=== PATIENT | male | born 1965 | race Caucasian/White ===

== ENCOUNTER → 2019-06-08 10:10 | Outpatient (CLI) | payer OTHER, SELFPAY ==
[2019-06-08 11:04] LABS: Add Manual Diff / Slide Review NO; Basophils Absolute Auto 0 /uL (0-100); Basophils Percent Auto 0.5 % (0-2); Eosinophils Absolute Auto 100 /uL (0-450); Eosinophils Percent Auto 1.2 % (2-4); Hematocrit 43.4 % (41-53); Hemoglobin 14.7 g/dL (13.5-17.5); Lymphocytes Absolute Auto 1500 /uL (1100-4500); Lymphocytes Percent Auto 28.7 % (25-40); Mean Corpuscular HGB Conc 33.9 % (30-36); Mean Corpuscular Hemoglobin 30.3 PG (26-34); Mean Corpuscular Volume 89.4 fL (80-100); Monocytes Absolute Auto 600 /uL (0-900); Monocytes Percent Auto 10.8 % (3-14); Neutrophils Absolute Auto 3000 /uL (1500-7000); Neutrophils Percent Auto 58.8 % (50-75); Platelet Count 268 X10^3/uL (150-400); Red Blood Cell Count 4.85 X10^6/uL (4.5-5.9); Red Cell Distribution Width 13.4 % (11.6-14.8); White Blood Cell Count 5.1 X10^3/uL (4.5-11.0)
[2019-06-08 11:22] LABS: Alanine Aminotransferase 25 IU/L (<50); Albumin 4.5 g/dL (3.5-5.0); Albumin Globulin Ratio 1.5 (1.0-2.8); Alkaline Phosphatase 142 U/L (38-126); Aspartate Aminotransferase 26 IU/L (17-59); BUN Creatinine Ratio 21.3 (6-22); Bilirubin Total 0.5 mg/dL (0.2-1.3); Blood Urea Nitrogen 17 mg/dL (9-20); Calcium 9.9 mg/dL (8.4-10.2); Carbon Dioxide 28 mmol/L (22-32); Chloride 102 mmol/L (98-107); Cholesterol 229 mg/dL (140-199); Estimated Glomerular Filt Rate > 60.0 mL/min (>60); Globulin 3.1 g/dL (1.7-4.1); Glucose 88 mg/dL (70-100); HDL Cholesterol 33 mg/dL (40-60); HEMOLYSIS < 15 (0-50); LDL Cholesterol Calculated 178 mg/dL (<100); Potassium 4.4 mmol/L (3.4-5.1); Sodium 141 mmol/L (137-145); Total Protein 7.6 g/dL (6.3-8.2); Triglycerides 92 mg/dL (35-150)
[2019-06-08 11:51] LABS: Free T3, Triiodothyronine Free 4.54 pg/mL (2.77-5.27); Free T4, Direct Thyroxine 1.19 ng/dL (0.78-2.19)
[2019-06-08 12:05] LABS: Thyroid Stimulating Hormone 2.29 uIU/mL (0.47-4.68)
== END ==
PROVIDERS: PCP Nurse Practitioner; Visit Provider Nurse Practitioner
DX: Z00.00 Encounter for general adult medical examination without abnormal findings (principal); Z12.5 Encounter for screening for malignant neoplasm of prostate
CPT/HCPCS: 36415; 80053; 80061; 84439; 84443; 84481; 85025; G0103

== ENCOUNTER → 2019-06-14 16:55 | Outpatient (CLI) | payer OTHER, SELFPAY ==
--- NOTE | 2019-06-14 16:58 | DI.MRI.S_ITS ---
PROCEDURE: MR KNEE LT WO CON INDICATIONS: Left knee pain TECHNIQUE: Noncontrast sagittal PD fast spin echo and T2 fast spin echo with fat saturation, sagittal 3-D FLASH with fat saturation; coronal T1 spin echo and PD fast spin echo with fat saturation, and axial PD fast spin echo with fat saturation through the knee. COMPARISON: None. FINDINGS: Image quality: Excellent. Menisci: Intrasubstance signal change present within the body of the medial meniscus although unclear if this extends to an articular surface. This could represent prominent myxoid degeneration Lateral meniscus intact. Cruciate ligaments: Anterior cruciate ligament appears intact. Posterior cruciate ligament appears intact. Medial structures: The medial collateral ligament appears intact. Semimembranosus tendon appears intact. Visualized portions of the pes anserinus tendons appear normal. No abnormal bursal fluid. Lateral structures: The lateral collateral ligament demonstrates thickening and intrasubstance signal change in keeping with low grade sprain, statistically chronic, although technically age indeterminate. Biceps femoris tendon appears intact. Popliteus tendon grossly unremarkable. Iliotibial band appears intact. Anterior structures: Quadriceps tendon intact. Medial and lateral patellofemoral ligaments intact. There is mild patellar tendinopathy. Prepatellar and superficial infrapatellar subcutaneous edema/fluid. Bones and cartilage: No focal marrow contusion or discrete low signal fracture line. Within the medial compartment, no focal cartilage defect Within the lateral compartment, intrasubstance signal changes involving the weightbearing tibial cartilage. No focal cartilage defect Within the patellofemoral compartment, there is full-thickness articular cartilage loss involving the median patellar ridge and lateral patellar facet. There is partial-thickness loss of the lateral femoral trochlear cartilage. Prominent subchondral marrow edema and cystic changes present in the patella. Joint space: Mild joint effusion. Trace fluid between the semimembranosus and medial gastrocnemius tendons without definite formed cyst. No specific evidence of intra-articular loose body. 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 Mild joint effusion Dictated by: Pilo Parada M.D. on 06/15/2019 at 9:37 Approved by: Pilo Parada M.D. on 06/15/2019 at 12:37
== END ==
PROVIDERS: PCP Nurse Practitioner; Visit Provider Nurse Practitioner
DX: M25.562 Pain in left knee (principal); M17.11 Unilateral primary osteoarthritis, right knee; M25.462 Effusion, left knee
CPT/HCPCS: 73721

== ENCOUNTER → 2019-09-01 15:55 | Outpatient (CLI) | payer OTHER, SELFPAY ==
--- NOTE | 2019-09-01 15:56 | DI.MRI.S_ITS ---
PROCEDURE: MR KNEE RT WO CON INDICATIONS: right knee pain with swelling TECHNIQUE: Noncontrast sagittal PD fast spin echo and T2 fast spin echo with fat saturation, sagittal 3-D FLASH with fat saturation; coronal T1 spin echo and PD fast spin echo with fat saturation, and axial PD fast spin echo with fat saturation through the knee. COMPARISON: [facility], MR, KNEE WITH CONTRAST, 03/27/2012, 10:04. [facility], MR, KNEE WITHOUT CONTRAST, 03/11/2012, 15:06. FINDINGS: Image quality: Diagnostic. Bones and joint: There is no acute fracture or dislocation. No suspicious osseous lesions are evident. There is a moderate-sized knee joint effusion without significant fluid extending into a Mejia's cyst. Multifocal small to moderate-sized defects of the hyaline articular cartilage are noted throughout all 3 compartments of the knee that are most pronounced within the patellofemoral compartment with underlying degenerative/reactive marrow edema. Cruciate ligaments: The anterior and posterior cruciate ligaments are intact. Slight increased signal of the anterior cruciate ligament may be present. Menisci: Amorphous increased signal is evident along the periphery of the medial and lateral menisci. There may be a horizontal tear at the junction of the body and posterior horn of the medial meniscus no articular surface extension is identified. Medial structures: The medial collateral ligament is intact. The semimembranosus tendon insertion is intact. The imaged portions of the pes anserinus tendons are unremarkable. No significant fluid is contained within the pes anserinus bursa. There may be mild scarring involving the medial patellofemoral ligament at the patellar attachment. Lateral structures: The popliteal tendon is mildly thickened and edematous. The lateral collateral ligament proper (fibular collateral ligament) and the proximal tibiofibular ligaments are intact. The distal aspect of the biceps femoris tendon and the iliotibial band are intact. There is a prominent tubular structure identified along the anterior aspect of the proximal fibula that likely represents a thickened tendon involving the origin of the extensor digitorum longus tendons. This is not completely evaluated on this examination. This cystic structure is new since the prior study. Anterior structures: The quadriceps and patellar tendons are intact. There is mild edema in the infrapatellar fat pad. Other: There continues to be a prominent vascular structures identified within the popliteal fossa, which are significantly less apparent on the current examination which may be related to interval treatment and clinical correlation is recommended. IMPRESSION: 1. Marked thickening involving a probable tendinous structure within the anterior compartment of the upper right lower leg adjacent to the anterior fibula probably represents an abnormal proximal extensor digitorum longus tendon with an associated ganglion cyst. Clinical correlation is recommended. The need for better evaluation of this region utilizing an MRI of the right lower leg may be determined clinically. 2. Mild proximal popliteal tendinopathy. 3. 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 4. Possible prior injury to the medial patellofemoral ligament. 4. Probable horizontal tearing along the periphery of the medial meniscus. No articular surface involvement. 6. Moderate-sized knee joint effusion. 7. Vascular anomaly within the popliteal fossa has either resolved or significantly smaller. Dictated by: Buzz Johnston M.D. on 09/01/2019 at 16:43 Approved by: Buzz Johnston M.D. on 09/01/2019 at 16:51
== END ==
PROVIDERS: PCP Student in an Organized Health Care Education/Training Program; Referring Provider Nurse Practitioner Family; Visit Provider Nurse Practitioner Family
DX: M25.561 Pain in right knee (principal); M25.461 Effusion, right knee; M94.261 Chondromalacia, right knee; M67.961 Unspecified disorder of synovium and tendon, right lower leg
CPT/HCPCS: 73721

== ENCOUNTER 2019-12-27 10:55 | Emergency (ER) | payer OTHER, SELFPAY ==
[2019-12-27] VITALS (9 sets, daily range): BP systolic 133–157; BP diastolic 79–92; PULSE 79–94; RESP 12–20; TEMP 36.7; O2SAT 94–100
--- NOTE | 2019-12-27 11:16 | ED.GENADULT ---
HPI - General Adult General Chief complaint: Neuro Symptoms/Deficit Stated complaint: FATIGUE HEADACHE TRY TO RULE OUT TA Time Seen by Provider: 12/27/19 11:15 Source: patient and family () Mode of arrival: Wheelchair Limitations: no limitations History of Present Illness HPI narrative: Patient is a 54-year-old male here for evaluation of left sided upper and lower extremity weakness and coordination issues and also headache. His presenting symptoms today started approximately 2 weeks ago. Patient stated that several weeks ago he started having right knee pain. Saw orthopedics who performed a right knee arthrocentesis. Sometime after this he started having left lower extremity weakness and pain. Initially the thought was that he was compensating for his right knee issues that he was having. Approximately 2 weeks ago he started having some weakness and coordination issues with his left upper extremity. Since that time he thinks that his left-sided symptoms have been worsening. He also states that he is having a headache. Has been having the headache for the past 3 weeks although it has been more persistent recently. No problem with loss of bowel or bladder. He is still able to obtain an erection. He is able to ambulate somewhat with a cane however is having more problems doing this over the past day given the weakness his left lower extremity. He states that 3 weeks ago he could climb a flight of stairs without much problems. Two weeks ago states that he had quite a bit of problems climbing stairs and now states that he would not be able to climb a flight of stairs. Difficult time describing whether not this is a weakness or coordination issue. He feels like it is potentially both. Related Data Home Medications Medication Instructions Recorded Confirmed No Known Home Medications 12/27/19 12/27/19 Allergies Allergy/AdvReac Type Severity Reaction Status Date / Time No Known Drug Allergies Allergy Unverified 09/09/19 12:55 Review of Systems Constitutional Constitutional: Denies fever(s), Reports headache(s), Denies poor appetite and Reports weakness (Left arm and left leg) ENT Ears, Nose, Mouth, and Throat: Denies vertigo, Denies dizziness, Reports headache(s), Reports neck pain, Reports disequilibrium and Denies sinus pain Cardiovascular Cardiovascular: Denies chest pain, Denies rapid heart rate, Denies lightheadedness and Denies dyspnea Respiratory Respiratory: Denies cough and Denies dyspnea Gastrointestinal Gastrointestinal: Denies abdominal pain, Denies change in bowel habits, Denies diarrhea and Denies nausea Genitourinary Genitourinary: Denies change in libido, Denies dysuria, Denies erectile dysfunction, Denies dysuria, Denies testicular pain, Denies urinary hesitancy and Denies urinary incontinence Genitourinary: Denies change in libido, Denies dysuria, Denies dysuria, Denies urinary incontinence and Denies urinary hesitancy Musculoskeletal Musculoskeletal: Reports abnormal gait, Denies back pain, Reports muscle weakness (Left arm and left lower extremity), Reports neck pain, Denies numbness and Denies tingling Integumentary/Breasts Skin/Breast: Denies lesions and Denies rash Neurologic Neurologic: Denies abnormal speech, Reports abnormal gait, Denies behavioral changes, Denies confusion, Denies vertigo, Denies dizziness, Reports headache(s), Denies numbness, Denies restless legs, Denies seizure-like activity, Denies tingling, Reports disequilibrium and Reports weakness (Left arm and left leg) Psychiatric Psychiatric: Denies behavioral changes, Denies change in libido, Denies confusion and Denies depression Endocrine Endocrine: Denies change in libido Hematologic/Lymphatic Hematologic/Lymphatic: Denies easy bleeding and Denies easy bruising Patient History Medical History Right medial knee pain (Acute) Smoker (Inactive) Surgical History (Updated 09/19/19 @ 19:48 by Taya Terry) Anesthesia (Resolved) History of ankle surgery (Resolved ~1978) Family History (Updated 09/19/19 @ 19:48 by Taya Terry) Father History of heart disease Social History Smoking Status: Former smoker Smoking Status: Former smoker Exam Initial Vital Signs Initial Vital Signs: Vital Signs Temperature 98.1 F 12/27/19 11:00 Pulse Rate 86 12/27/19 11:00 Respiratory Rate 14 12/27/19 11:00 Blood Pressure 134/90 12/27/19 11:00 Pulse Oximetry 100 12/27/19 11:00 Const General: cooperative, well developed and well groomed Limitations: mental status not altered HENMT Head: normal to inspection and normocephalic Eyes Pupils: PERRL Resp Effort & Inspection: normal respiratory effort Auscultation: clear to auscultation bilaterally Cardio Rate: regular rate Rhythm: regular rhythm Pulses: dorsalis pedis present on the right GI Inspection: non-distended Palpation: soft Back/Spine/Pelvis Cervical Spine: cervical muscular tenderness (Left paraspinal), No cervical spasm and No step off deformity Skin Lesions: no lesions Rashes: no rashes Neuro General: patient alert, patient awake and patient oriented x3 Cranial Nerves: CN's II-XI intact bilaterally Cognition: normal cognition Speech: speech normal Motor: No pronator drift Sensory Exam: no sensory deficits noted DTR's: Rt Biceps: 2+, Lt Biceps: 3+, Rt Ankle: 1+ and Lt Ankle: 1+ Other: Neurologic exam in the right upper and right lower extremity are unremarkable. His left lower extremity has significant muscle wasting of the thigh and hamstring compared to the right. Patient is able to lift his leg somewhat off the bed. Is able to flex and extend at his ankle and and this is same as the right side however does have weakness with flexion extension of the knee and at the hip. His left upper extremity his elbow is unremarkable and equal strength compared to the right. Does have quite a bit of muscle weakness of the shoulder especially with abduction and forward flexion. Also has weakness with flexion of the right wrist. Extrem General: normal to inspection, capillary refill normal and edema Other: Does have tenderness to palpation left snuffbox tenderness. Psych Appearance: grossly normal and well kempt Affect: normal affect Scores GCS Tiffany coma scale eye opening: Spontaneous Tiffany coma scale verbal response: Orientated [place] coma scale motor response: Obey commands [place] coma scale total score: 15 Course Orders Ordered: ED Orders 12/27/19 11:06 EKG-12 Lead Stat 12/27/19 11:10 Complete Blood Count AUTO DIFF Stat Comprehensive Metabolic Panel Stat Lipase Stat Partial Thromboplastin Time Stat Prothrombin Time INR Stat Thyroid Stimulating Hormone Stat 12/27/19 11:45 CT head/brain wo con Stat 12/27/19 12:00 XR hand LT min 3V Stat 12/27/19 12:13 MR cervical spine wo/w con Stat MR head/brain wo/w con Stat Discontinued Medications Acetaminophen (Tylenol) 975 mg PO NOW ONE Stop: 12/27/19 15:17 Last Admin: 12/27/19 15:55 Dose: 975 mg Documented by: GODFREY Vital Signs Vital signs: Vital Signs - 8 hr 12/27/19 11:00 12/27/19 11:30 12/27/19 12:00 Temperature 98.1 F Pulse Rate 86 80 79 Respiratory Rate 14 18 12 Blood Pressure 134/90 Blood Pressure [Left Arm] 139/84 134/81 Pulse Oximetry 100 96 97 12/27/19 13:14 12/27/19 14:09 12/27/19 14:30 Temperature Pulse Rate 81 87 94 H Respiratory Rate 18 16 20 Blood Pressure Blood Pressure [Left Arm] 138/84 140/79 157/92 H Pulse Oximetry 98 98 94 12/27/19 15:00 12/27/19 15:57 12/27/19 17:28 Temperature Pulse Rate 85 84 80 Respiratory Rate 17 16 16 Blood Pressure Blood Pressure [Left Arm] 147/86 H 143/83 H 133/80 Pulse Oximetry 94 99 99 Medical Decision Making Lab Data Lab results reviewed: Yes I reviewed the patient's lab results. Result diagrams: 12/27/19 11:10 12/27/19 11:10 Labs: Lab Results 12/27/19 12/27/19 12/27/19 Range/Units 11:10 11:10 11:10 WBC 6.3 (4.5-11.0) X10^3/uL RBC 5.48 (4.5-5.9) X10^6/uL Hgb 14.4 (13.5-17.5) g/dL Hct 43.9 (41-53) % MCV 80.0 (80-100) fL MCH 26.3 (26-34) PG MCHC 32.9 (30-36) % RDW 17.2 H (11.6-14.8) % Plt Count 269 (150-400) X10^3/uL Neut % (Auto) 69.6 (50-75) % Lymph % (Auto) 18.1 L (25-40) % Elmore % (Auto) 10.6 (3-14) % Eos % (Auto) 0.7 L (2-4) % Baso % (Auto) 1.0 (0-2) % Neut # (Auto) 4400 (4893-3753) /uL Lymph # (Auto) 1200 (1594-7300) /uL Elmore # (Auto) 700 (0-900) /uL Eos # (Auto) 0 (0-450) /uL Baso # (Auto) 100 (0-100) /uL PT 12.0 (10.1-12.7) SECONDS INR 1.0 (0.9-1.3) APTT 34 (26.4-36.2) SECONDS Sodium 136 L (137-145) mmol/L Potassium 4.7 (3.4-5.1) mmol/L Chloride 105 (98-107) mmol/L Carbon Dioxide 24 (22-32) mmol/L BUN 25 H (9-20) mg/dL Creatinine 0.80 (0.66-1.25) mg/dL Estimated GFR > 60.0 (>60) mL/min BUN/Creatinine Ratio 31.3 H (6-22) Glucose 101 H (70-100) mg/dL Calcium 10.6 H (8.4-10.2) mg/dL Total Bilirubin 0.7 (0.2-1.3) mg/dL AST 30 (17-59) IU/L ALT 20 (<50) IU/L Alkaline Phosphatase 125 (38-126) U/L Total Protein 8.0 (6.3-8.2) g/dL Albumin 4.3 (3.5-5.0) g/dL Globulin 3.7 (1.7-4.1) g/dL Albumin/Globulin Ratio 1.2 (1.0-2.8) Lipase 40 (23-300) U/L TSH (0.47-4.68) uIU/mL /03/09 Range/Units 11:10 WBC (4.5-11.0) X10^3/uL RBC (4.5-5.9) X10^6/uL Hgb (13.5-17.5) g/dL Hct (41-53) % MCV (80-100) fL MCH (26-34) PG MCHC (30-36) % RDW (11.6-14.8) % Plt Count (150-400) X10^3/uL Neut % (Auto) (50-75) % Lymph % (Auto) (25-40) % Elmore % (Auto) (3-14) % Eos % (Auto) (2-4) % Baso % (Auto) (0-2) % Neut # (Auto) (1097-6372) /uL Lymph # (Auto) (7399-7040) /uL Elmore # (Auto) (0-900) /uL Eos # (Auto) (0-450) /uL Baso # (Auto) (0-100) /uL PT (10.1-12.7) SECONDS INR (0.9-1.3) APTT (26.4-36.2) SECONDS Sodium (137-145) mmol/L Potassium (3.4-5.1) mmol/L Chloride (98-107) mmol/L Carbon Dioxide (22-32) mmol/L BUN (9-20) mg/dL Creatinine (0.66-1.25) mg/dL Estimated GFR (>60) mL/min BUN/Creatinine Ratio (6-22) Glucose (70-100) mg/dL Calcium (8.4-10.2) mg/dL Total Bilirubin (0.2-1.3) mg/dL AST (17-59) IU/L ALT (<50) IU/L Alkaline Phosphatase (38-126) U/L Total Protein (6.3-8.2) g/dL Albumin (3.5-5.0) g/dL Globulin (1.7-4.1) g/dL Albumin/Globulin Ratio (1.0-2.8) Lipase (23-300) U/L TSH 2.32 (0.47-4.68) uIU/mL Imaging Data CT scan - head: Radiologist's Impression: [place] [address] CT Scan Report Signed Patient: Kerline Green TMR#: [id number] : 1965Acct:[id number] Age/Sex: 54 / MDate of Service: 12/27/19 Loc: ED Accession Number: [id number] Procedure: CT head/brain wo con Ordering Provider: Marc Wilson D.O. PROCEDURE: CT HEAD/BRAIN WO CON INDICATIONS: Right-sided weakness TECHNIQUE: Noncontrast 4.5 mm thick angled axial sections acquired from the foramen magnum to the vertex, with coronal and sagittal reformats. For radiation dose reduction, the following was used: automated exposure control, adjustment of mA and/or kV according to patient size. COMPARISON: None. FINDINGS: Image quality: Diagnostic. CSF spaces: Basal cisterns are patent. No extra-axial fluid collections. Ventricles are normal in size and shape. Brain: There appear to be 5 hyperdense parenchymal lesions with prominent surrounding edema within the deep white matter of the supratentorial brain. The largest is located within the inferior aspect of the left frontal region and measures up to approximately 1.7 cm. There also is a small lesion identified near the same level involving the inferior right frontal region that measures approximately 5 mm in diameter (image 15, series 2). Similar sized lesions are evident involving the superior aspect of the left frontal lobe and the superior margin of the right frontal lobe. Another dominant mass is evident involving the superior margin of the right frontal lobe that measures up to approximately 1.2 cm in diameter (image 26, series 2). Local mass effect is present related to these lesions. However, no midline shift is appreciated. No parenchymal hemorrhage is appreciated. Skull and face: There appears to be a erosive lesion involving the left C1 vertebra (image 1, series 3). Otherwise, the imaged osseous structures are unremarkable. Sinuses: Visualized sinuses and mastoids are clear. IMPRESSION: 1. Multiple lesions within the brain are highly suggestive of metastatic disease. An atypical infection could potentially result in this appearance. MRI with contrast is recommended for further evaluation. 2. Erosive C1 bone lesion is suggestive of metastatic disease. 3. No definite acute intracranial hemorrhage. Note: Findings were discussed with Dr. Wilson at 1207 hours (PST) on 12/27/19. Dictated by: Buzz Johnston M.D. on 12/27/2019 at 11:00 Approved by: Buzz Johnston M.D. on 12/27/2019 at 11:10 Extremity x-ray #1: Radiologist's Impression: [address] [address] XRay Report Signed Patient: Kerline Green TMR#: [id number] : 1965Acct:[id number] Age/Sex: 54 / MDate of Service: 12/27/19 Loc: ED Accession Number: [id number] Procedure: XR hand LT min 3V Ordering Provider: Marc Wilson D.O. PROCEDURE: XR HAND LT MIN 3V INDICATIONS: left thumb pain over snuff box TECHNIQUE: 3 views of the hand(s) acquired. COMPARISON: None. FINDINGS: Bones: There appears to be a lucent lesion involving the trapezium versus postoperative changes related to partial resection. No acute fracture or dislocation is identified. The remainder of the image osseous structures are otherwise unremarkable. Soft tissues: No suspicious soft tissue calcifications. An IV in the catheter is identified within the subcutaneous tissues on the dorsal aspect of the hand. IMPRESSION: 1. No acute fractures. 2. Lucent lesion versus previous partial resection of the trapezium. If the patient has not had prior surgery at this location, MRI is recommended with contrast to exclude a potential neoplastic or infectious process. Dictated by: Buzz Johnston M.D. on 12/27/2019 at 11:23 Approved by: Buzz Johnston M.D. on 12/27/2019 at 11:25 MRI C-spine: Radiologist's Impression: [place] [address] Magnetic Resonance Report Signed Patient: Kerline Green TMR#: [id number] : 1965Acct:[id number] Age/Sex: 54 / MDate of Service: 12/27/19 Loc: ED Accession Number: [id number] Procedure: MR cervical spine wo/w con Ordering Provider: Marc Wilson D.O. PROCEDURE: MR CERVICAL SPINE WO/W CON INDICATIONS: C1 lesion TECHNIQUE: Noncontrast sagittal T1 spin echo and T2 fast spin echo, sagittal STIR, foraminal oblique sagittal T2 fast spin echo, axial gradient echo or T2 fast spin echo through the cervical spine. After the administration of contrast, axial and sagittal T1 spin echo with fat saturation through the cervical spine. COMPARISON: [facility], MR, MR HEAD/BRAIN WO/W CON, 12/27/2019, 12:15. [facility], CT, CT HEAD/BRAIN WO CON, 12/27/2019, 11:41. FINDINGS: Image quality: Excellent. Alignment and curvature: There is normal bony alignment. Marrow: There is a mass infiltrating the left aspect of the C1 level, with increased T2-weighted/STIR signal and decreased T1 weighted signal. Increased enhancement can also be seen within the bone marrow at this site. Spinal cord: Visualized spinal cord has normal size and signal. No cerebellar tonsillar herniation. No abnormal intramedullary enhancement. Paraspinous soft tissues: There is mild enhancement seen surrounding the left C1 level. C2-3: The disc height is well-preserved. Loss of disc signal is seen at this level. A mild degree of generalized disc osteophyte complex is seen. No significant neural foraminal narrowing is seen. Mild central canal narrowing is seen. C3-4: The disc height is well-preserved. Loss of disc signal is seen at this level. A mild degree of generalized disc osteophyte complex is seen. There is moderate right-sided and mild left-sided facet hypertrophy seen. There is moderate bilateral neural foraminal narrowing seen. Mild central canal narrowing is seen. C4-5: Minimal loss of disc height is seen. Loss of disc signal can be seen. A mild degree of generalized disc osteophyte complex is seen. Mild facet joint hypertrophy is seen. No significant neural foraminal narrowing is seen. Minimal central canal narrowing is seen. C5-6: Moderate loss of disc height is seen. Loss of disc signal is seen. Moderate disc osteophyte complex is seen, which is eccentric to the left. Uncovertebral joint hypertrophy is seen at this level. Mild to moderate facet hypertrophy is seen. There is moderate to severe left-sided and no significant right-sided neural foraminal narrowing seen. Mild to moderate central canal narrowing is seen. C6-7: Moderate loss of disc height is seen. Loss of disc signal is seen. At least moderate disc osteophyte complex is seen. Mild to moderate facet hypertrophy is seen. There is moderate to severe bilateral neural foraminal narrowing seen, right worse than left. At least moderate central canal narrowing is seen. There is associated mass effect upon the ventral spinal cord. C7-T1: No significant abnormality is seen. IMPRESSION: Metastatic disease to the left aspect of the C1 level. No hawk additional findings of metastatic disease are detected. No definite lesions can be seen within the cervical spinal cord. Cervical spine degenerative changes are seen, which are worst at C5-C6 and C6-C7. Dictated by: Kevin Nur M.D. on 12/27/2019 at 12:14 Approved by: Kevin Nur M.D. on 12/27/2019 at 12:18 MRI brain: Radiologist's Impression: [address] [address] Magnetic Resonance Report Signed Patient: Kerline Green TMR#: [id number] : 1965Acct:[id number] Age/Sex: 54 / MDate of Service: 12/27/19 Loc: ED Accession Number: [id number] Procedure: MR head/brain wo/w con Ordering Provider: Marc Wilson D.O. PROCEDURE: MR HEAD/BRAIN WO/W CON INDICATIONS: Metastatic disease TECHNIQUE: Noncontrast axial T1 spin echo, axial T2 fast spin echo, sagittal and axial FLAIR, coronal T2 fast spin echo, axial gradient echo, axial diffusion and ADC through the brain. After the administration of contrast, axial and coronal 3D VIBE or T1 spin echo with fat saturation through the brain. COMPARISON: [facility], MR, MR CERVICAL SPINE WO/W CON, 12/27/2019, 12:15. [facility], CT, CT HEAD/BRAIN WO CON, 12/27/2019, 11:41. FINDINGS: Image quality: Excellent. CSF Spaces: Basal cisterns are patent. No extra-axial fluid collections. The lateral ventricles are deformed on both sides. Brain: No gross intracranial masses are seen, with prominent surrounding vasogenic edema. The largest solitary lesion is seen involving the left frontal lobe superiorly, measuring 1.8 x 1.8 x 1.6 cm. The largest solitary lesion on the right is seen within the posterior frontal lobe measuring 1.7 x 1.6 x 1.7 cm. There is associated mild mass effect seen, with deformation of the lateral ventricles. No hawk midline shift. No hawk findings of hemorrhage can be seen on these lesions. The brainstem appears normal. Diffusion-weighted images demonstrate no acute ischemic insults. Normal intravascular flow voids are present. Skull and face: There is partial visualization of left C1 lesion. Calvarial marrow is normal in signal. Orbits appear normal. Sinuses: Sinuses and mastoids appear clear. IMPRESSION: Prominent intracranial metastatic disease, with mass effect with deformation of the lateral ventricles. Neurosurgical consultation and radiation oncology consultation are recommended. Note: Case discussed by telephone with Dr. Wilson at 1:50 PM [place] time on December 27, 2019. Dictated by: Kevin Nur M.D. on 12/27/2019 at 12:08 Approved by: Kevin Nur M.D. on 12/27/2019 at 12:12 ECG Data Attestation: I personally reviewed and interpreted this ECG as follows: Prior ECG tracings: not available for review Interpretation: Sinus rhythm Left axis deviation Incomplete right bundle branch block LVH Ventricular rate 84 MDM Narrative Medical decision making narrative: I have low suspicion for CVA or TIA. He did have significant neurologic findings and does it appear to be left-sided only. His cranial nerves were intact. Also seems to be proximal lower extremity and upper extremity. The head CT is concerning for metastatic disease. Radiology recommended MRI. Given the C1 lesion noted on the CT scan and MRI of the neck and head was ordered. This again is concerning for metastatic disease. The left hand was x-rayed secondary to the pain that he had in this area. Is concerning about a bony lytic lesion in this area as well. I did discuss all these findings with the patient his at bedside. I did inform them that I am concerned about cancer in that the findings we are seeing are metastatic lesions. Informed them that unsure where the primary cancer would be. They were concerned about MS and I feel that this is less likely given the radiologic studies that we have already performed. It does not seem to be any midline shift on the CT scan. I did discuss the case with [facility] who was able to locate in the accepting physician at [facility] [place]. Patient is stable for transfer. I did discuss this with him. Plan will be is to hold on any further radiologic studies at this facility. The patient is expressed understanding and agreement. Discharge Plan Departure Patient Disposition: [facility] Clinical Impression: Left-sided muscle weakness, Brain lesion Prescriptions: No Action No Known Home Medications RF: 0 Referrals: Noam Lawson MD [Primary Care Provider] -
[2019-12-27 11:22] LABS: Add Manual Diff / Slide Review NO; Basophils Absolute Auto 100 /uL (0-100); Eosinophils Absolute Auto 0 /uL (0-450); Eosinophils Percent Auto 0.7 % (2-4); Hematocrit 43.9 % (41-53); Hemoglobin 14.4 g/dL (13.5-17.5); Lymphocytes Absolute Auto 1200 /uL (1100-4500); Lymphocytes Percent Auto 18.1 % (25-40); Mean Corpuscular HGB Conc 32.9 % (30-36); Mean Corpuscular Hemoglobin 26.3 PG (26-34); Monocytes Absolute Auto 700 /uL (0-900); Monocytes Percent Auto 10.6 % (3-14); Neutrophils Absolute Auto 4400 /uL (1500-7000); Neutrophils Percent Auto 69.6 % (50-75); Platelet Count 269 X10^3/uL (150-400); Red Blood Cell Count 5.48 X10^6/uL (4.5-5.9); Red Cell Distribution Width 17.2 % (11.6-14.8); White Blood Cell Count 6.3 X10^3/uL (4.5-11.0)
[2019-12-27 11:27] LABS: PTT Partial Thromboplastin Tim 34 SECONDS (26.4-36.2)
[2019-12-27 11:29] LABS: Alanine Aminotransferase 20 IU/L (<50); Albumin 4.3 g/dL (3.5-5.0); Albumin Globulin Ratio 1.2 (1.0-2.8); Alkaline Phosphatase 125 U/L (38-126); BUN Creatinine Ratio 31.3 (6-22); Bilirubin Total 0.7 mg/dL (0.2-1.3); Blood Urea Nitrogen 25 mg/dL (9-20); Calcium 10.6 mg/dL (8.4-10.2); Carbon Dioxide 24 mmol/L (22-32); Chloride 105 mmol/L (98-107); Estimated Glomerular Filt Rate > 60.0 mL/min (>60); Globulin 3.7 g/dL (1.7-4.1); Glucose 101 mg/dL (70-100); Lipase 40 U/L (23-300); Sodium 136 mmol/L (137-145)
--- NOTE | 2019-12-27 11:36 | PC.NURSE ---
See triage note: Left arm w/ decreased sensation, public policy associate strength 3/5 compared w/ right. Left leg w/ foot drop. Ataxic on both. + drift both. reports progressive over past 2-3 weeks. No trauma prior to symptoms. Denies current nausea / vomiting/ shortness of breath, fever. Using cane to ambulate.
[2019-12-27 11:40] LABS: Aspartate Aminotransferase 30 IU/L (17-59); HEMOLYSIS 74 (0-50); Potassium 4.7 mmol/L (3.4-5.1)
--- NOTE | 2019-12-27 11:45 | DI.CT.S_ITS ---
PROCEDURE: CT HEAD/BRAIN WO CON INDICATIONS: Right-sided weakness TECHNIQUE: Noncontrast 4.5 mm thick angled axial sections acquired from the foramen magnum to the vertex, with coronal and sagittal reformats. For radiation dose reduction, the following was used: automated exposure control, adjustment of mA and/or kV according to patient size. COMPARISON: None. FINDINGS: Image quality: Diagnostic. CSF spaces: Basal cisterns are patent. No extra-axial fluid collections. Ventricles are normal in size and shape. Brain: There appear to be 5 hyperdense parenchymal lesions with prominent surrounding edema within the deep white matter of the supratentorial brain. The largest is located within the inferior aspect of the left frontal region and measures up to approximately 1.7 cm. There also is a small lesion identified near the same level involving the inferior right frontal region that measures approximately 5 mm in diameter (image 15, series 2). Similar sized lesions are evident involving the superior aspect of the left frontal lobe and the superior margin of the right frontal lobe. Another dominant mass is evident involving the superior margin of the right frontal lobe that measures up to approximately 1.2 cm in diameter (image 26, series 2). Local mass effect is present related to these lesions. However, no midline shift is appreciated. No parenchymal hemorrhage is appreciated. Skull and face: There appears to be a erosive lesion involving the left C1 vertebra (image 1, series 3). Otherwise, the imaged osseous structures are unremarkable. Sinuses: Visualized sinuses and mastoids are clear. IMPRESSION: 1. Multiple lesions within the brain are highly suggestive of metastatic disease. An atypical infection could potentially result in this appearance. MRI with contrast is recommended for further evaluation. 2. Erosive C1 bone lesion is suggestive of metastatic disease. 3. No definite acute intracranial hemorrhage. Note: Findings were discussed with Dr. Wilson at 1207 hours (PST) on 12/27/19. Dictated by: Buzz Johnston M.D. on 12/27/2019 at 11:00 Approved by: Buzz Johnston M.D. on 12/27/2019 at 11:10
--- NOTE | 2019-12-27 12:00 | DI.RAD.S_ITS ---
PROCEDURE: XR HAND LT MIN 3V INDICATIONS: left thumb pain over snuff box TECHNIQUE: 3 views of the hand(s) acquired. COMPARISON: None. FINDINGS: Bones: There appears to be a lucent lesion involving the trapezium versus postoperative changes related to partial resection. No acute fracture or dislocation is identified. The remainder of the image osseous structures are otherwise unremarkable. Soft tissues: No suspicious soft tissue calcifications. An IV in the catheter is identified within the subcutaneous tissues on the dorsal aspect of the hand. IMPRESSION: 1. No acute fractures. 2. Lucent lesion versus previous partial resection of the trapezium. If the patient has not had prior surgery at this location, MRI is recommended with contrast to exclude a potential neoplastic or infectious process. Dictated by: Buzz Johnston M.D. on 12/27/2019 at 11:23 Approved by: Buzz Johnston M.D. on 12/27/2019 at 11:25
--- NOTE | 2019-12-27 12:13 | DI.MRI.S_ITS ---
PROCEDURE: MR HEAD/BRAIN WO/W CON INDICATIONS: Metastatic disease TECHNIQUE: Noncontrast axial T1 spin echo, axial T2 fast spin echo, sagittal and axial FLAIR, coronal T2 fast spin echo, axial gradient echo, axial diffusion and ADC through the brain. After the administration of contrast, axial and coronal 3D VIBE or T1 spin echo with fat saturation through the brain. COMPARISON: [facility], MR, MR CERVICAL SPINE WO/W CON, 12/27/2019, 12:15. [facility], CT, CT HEAD/BRAIN WO CON, 12/27/2019, 11:41. FINDINGS: Image quality: Excellent. CSF Spaces: Basal cisterns are patent. No extra-axial fluid collections. The lateral ventricles are deformed on both sides. Brain: No gross intracranial masses are seen, with prominent surrounding vasogenic edema. The largest solitary lesion is seen involving the left frontal lobe superiorly, measuring 1.8 x 1.8 x 1.6 cm. The largest solitary lesion on the right is seen within the posterior frontal lobe measuring 1.7 x 1.6 x 1.7 cm. There is associated mild mass effect seen, with deformation of the lateral ventricles. No hawk midline shift. No hawk findings of hemorrhage can be seen on these lesions. The brainstem appears normal. Diffusion-weighted images demonstrate no acute ischemic insults. Normal intravascular flow voids are present. Skull and face: There is partial visualization of left C1 lesion. Calvarial marrow is normal in signal. Orbits appear normal. Sinuses: Sinuses and mastoids appear clear. IMPRESSION: Prominent intracranial metastatic disease, with mass effect with deformation of the lateral ventricles. Neurosurgical consultation and radiation oncology consultation are recommended. Note: Case discussed by telephone with Dr. Wilson at 1:50 PM [place] time on December 27, 2019. Dictated by: Kevin Nur M.D. on 12/27/2019 at 12:08 Approved by: Kevin Nur M.D. on 12/27/2019 at 12:12
--- NOTE | 2019-12-27 12:13 | DI.MRI.S_ITS ---
PROCEDURE: MR CERVICAL SPINE WO/W CON INDICATIONS: C1 lesion TECHNIQUE: Noncontrast sagittal T1 spin echo and T2 fast spin echo, sagittal STIR, foraminal oblique sagittal T2 fast spin echo, axial gradient echo or T2 fast spin echo through the cervical spine. After the administration of contrast, axial and sagittal T1 spin echo with fat saturation through the cervical spine. COMPARISON: [facility], MR, MR HEAD/BRAIN WO/W CON, 12/27/2019, 12:15. [facility], CT, CT HEAD/BRAIN WO CON, 12/27/2019, 11:41. FINDINGS: Image quality: Excellent. Alignment and curvature: There is normal bony alignment. Marrow: There is a mass infiltrating the left aspect of the C1 level, with increased T2-weighted/STIR signal and decreased T1 weighted signal. Increased enhancement can also be seen within the bone marrow at this site. Spinal cord: Visualized spinal cord has normal size and signal. No cerebellar tonsillar herniation. No abnormal intramedullary enhancement. Paraspinous soft tissues: There is mild enhancement seen surrounding the left C1 level. C2-3: The disc height is well-preserved. Loss of disc signal is seen at this level. A mild degree of generalized disc osteophyte complex is seen. No significant neural foraminal narrowing is seen. Mild central canal narrowing is seen. C3-4: The disc height is well-preserved. Loss of disc signal is seen at this level. A mild degree of generalized disc osteophyte complex is seen. There is moderate right-sided and mild left-sided facet hypertrophy seen. There is moderate bilateral neural foraminal narrowing seen. Mild central canal narrowing is seen. C4-5: Minimal loss of disc height is seen. Loss of disc signal can be seen. A mild degree of generalized disc osteophyte complex is seen. Mild facet joint hypertrophy is seen. No significant neural foraminal narrowing is seen. Minimal central canal narrowing is seen. C5-6: Moderate loss of disc height is seen. Loss of disc signal is seen. Moderate disc osteophyte complex is seen, which is eccentric to the left. Uncovertebral joint hypertrophy is seen at this level. Mild to moderate facet hypertrophy is seen. There is moderate to severe left-sided and no significant right-sided neural foraminal narrowing seen. Mild to moderate central canal narrowing is seen. C6-7: Moderate loss of disc height is seen. Loss of disc signal is seen. At least moderate disc osteophyte complex is seen. Mild to moderate facet hypertrophy is seen. There is moderate to severe bilateral neural foraminal narrowing seen, right worse than left. At least moderate central canal narrowing is seen. There is associated mass effect upon the ventral spinal cord. C7-T1: No significant abnormality is seen. IMPRESSION: Metastatic disease to the left aspect of the C1 level. No hawk additional findings of metastatic disease are detected. No definite lesions can be seen within the cervical spinal cord. Cervical spine degenerative changes are seen, which are worst at C5-C6 and C6-C7. Dictated by: Kevin Nur M.D. on 12/27/2019 at 12:14 Approved by: Kevin Nur M.D. on 12/27/2019 at 12:18
[2019-12-27 12:17] LABS: Thyroid Stimulating Hormone 2.32 uIU/mL (0.47-4.68)
[2019-12-27] MEDS: ACETAMINOPHEN 325 MG TABLET 975 MG PO (15:55)
== END 2019-12-27 18:15 | disposition short-term general hospital (02) ==
PROVIDERS: Emergency Provider Emergency Medicine; PCP Student in an Organized Health Care Education/Training Program
DX: M62.81 Muscle weakness (generalized) (principal); G93.9 Disorder of brain, unspecified; M79.645 Pain in left finger(s); R07.9 Chest pain, unspecified
CPT/HCPCS: 36415; 70450; 70553; 72156; 73130; 80053; 83690; 84443; 85025; 85610; 85730; 93005; 99285; A9579

== ENCOUNTER → 2020-04-14 09:52 | Outpatient (CLI) | payer OTHER, SELFPAY ==
--- NOTE | 2020-04-14 09:54 | DI.CT.S_ITS ---
PROCEDURE: CT CHEST ABD PEL W CON INDICATIONS: Metestatic renal cancer TECHNIQUE: After the administration of oral and intravenous contrast, 5 mm thick sections acquired from the lung apices to the symphysis. 5 mm coronal and sagittal reformats were performed, with additional 7 mm coronal MIP reformats through the lungs. For radiation dose reduction, the following was used: automated exposure control, adjustment of mA and/or kV according to patient size. COMPARISON: [facility], MR, MR HEAD/BRAIN WO/W CON, 12/27/2019, 12:15. [facility], MR, MR CERVICAL SPINE WO/W CON, 12/27/2019, 12:15. Currently, an outside report from a CT performed on 12/28/19 is available. In this report, innumerable bilateral pulmonary nodules, measuring up to 11 mm in diameter are described. FINDINGS: Image quality: Excellent. CHEST: Lungs and pleura: 4 mm pulmonary nodule, right middle lobe, image 173/2. 2 mm pulmonary nodule, right middle lobe, image 192/2. 4 mm subpleural right middle lobe pulmonary nodule, image 209/2. 2 mm subpleural pulmonary nodule, right lower lobe, image 173/2. 2 mm subpleural pulmonary nodule, right middle lobe, image 195/2. 2 separate pulmonary nodules, both measuring 3 mm, subpleural location, left lower lobe, image 200/2. 3 mm subpleural pulmonary nodule, left lingula, image 203/2. No acute airspace opacities. No pleural effusions or pneumothorax. Central and peripheral airways appear patent and normal in caliber. Mediastinum: Heart size is normal. No pericardial effusion. No mediastinal or hilar adenopathy by size criteria. Thoracic aorta and central pulmonary arteries are normal in size. Esophagus is normal in caliber. No hiatal hernia. Chest wall: No axillary or supraclavicular adenopathy by size criteria. Thyroid gland has some small nodularity.. ABDOMEN: Solid organs: There is a diffusely hyperdense lesion at the surface of the posterior segment right lobe of the liver measuring 1.3 cm. Consider hemangioma versus a hyperdense metastatic lesion. No other liver lesions. Gallbladder is unremarkable. Biliary system is non dilated. Pancreas enhances normally. Spleen is normal in size and enhancement. No adrenal nodules . There is a centrally necrotic peripherally enhancing mass involving the upper pole in middle pole of the left kidney consistent with a left renal cell carcinoma. It measures approximately 7.5 cm in maximum diameter. There is contiguous spread into the perirenal fat, most notably superior to the kidney. Peritoneum and bowel: Bowel loops demonstrate normal wall thickness and caliber. No free fluid or air. Nodes and vessels: No retroperitoneal or mesenteric adenopathy by size criteria. There are numerous tiny left perirenal lymph nodes, of uncertain etiology. They are not suspicious by size criteria, but are greater than typically seen. Aorta and inferior vena cava are normal in size. Miscellaneous: No ventral hernias. PELVIS: Genitourinary: Bladder wall thickness is normal. Miscellaneous: No inguinal hernias or adenopathy. Bones: No suspicious bony lesions. There is an old mild superior endplate compression fracture of T12. There is a mild superior endplate compression fracture of L2 which may be subacute. IMPRESSION: 1. 7.5 cm probable renal cell carcinoma of the left kidney with clear extension into the surrounding perirenal fat. 2. Question right lobe liver hemangioma versus hypervascular liver met. 3. Multiple tiny pulmonary nodules. The prior study is not available for comparison. These are of uncertain etiology. 4. Old T12 compression fracture, probable subacute L2 compression fracture. No evidence of underlying metastatic disease. Dictated by: Mo Salgado M.D. on 04/14/2020 at 12:05 Approved by: Mo Salgado M.D. on 04/14/2020 at 12:23
== END ==
PROVIDERS: PCP Student in an Organized Health Care Education/Training Program; Referring Provider Student in an Organized Health Care Education/Training Program; Visit Provider Student in an Organized Health Care Education/Training Program
DX: C64.2 Malignant neoplasm of left kidney, except renal pelvis (principal); K76.9 Liver disease, unspecified; R91.8 Other nonspecific abnormal finding of lung field; M48.56XA Collapsed vertebra, not elsewhere classified, lumbar region, initial encounter for fracture
CPT/HCPCS: 71260; 74177; Q9967

== ENCOUNTER 2020-04-28 17:11 | Emergency (ER) | payer OTHER, SELFPAY ==
[2020-04-28] VITALS (9 sets, daily range): BP systolic 114–134; BP diastolic 81–88; PULSE 74–83; RESP 12–18; O2SAT 96–99; BMI 22.9
--- NOTE | 2020-04-28 17:33 | DI.CT.S_ITS ---
PROCEDURE: CT HEAD/BRAIN WO CON INDICATIONS: Altered mental status on chemo TECHNIQUE: Noncontrast 4.5 mm thick angled axial sections acquired from the foramen magnum to the vertex, with coronal and sagittal reformats. For radiation dose reduction, the following was used: automated exposure control, adjustment of mA and/or kV according to patient size. COMPARISON: [facility], CT, CT HEAD/BRAIN WO CON, 12/27/2019, 11:41. FINDINGS: Image quality: Excellent. CSF spaces: Basal cisterns are patent. No extra-axial fluid collections. The ventricles are symmetric in size and shape. Brain: No intracranial bleeds. Focal edema is present within the right frontal white matter. This is markedly decreased in extent when compared with the prior CT dated December 27, 2019. Focal edema is also noted within the inferior left frontal lobe. This region is also markedly decreased in extent when compared with the prior CT. Underlying mass lesions are not appreciated on the current study but were visualized on the prior CT. No midline shift. No intraventricular hemorrhage. Skull and face: Calvarium and visualized facial bones appear intact, without suspicious lesions. Sinuses: Visualized sinuses and mastoids are clear. IMPRESSION: 1. Markedly decreased cerebral edema when compared with the prior CT dated December 27, 2019 consistent with the patient's given history of current treatment for brain metastases. No findings to suggest acute intracranial hemorrhage. If further characterization is warranted, MRI of the brain with and without contrast could be used. Dictated by: Maria Eugenia Virgen M.D. on 04/28/2020 at 17:50 Approved by: Maria Eugenia Virgen M.D. on 04/28/2020 at 17:53
[2020-04-28 18:20] LABS: UR Morphine/Opiate cutoff 300 Negative (Negative); Ur Creatinine Normal (Normal); Ur Specific Gravity Normal (Normal); Urine Amphetamines Negative (Negative); Urine Barbiturates Negative (Negative); Urine Benzodiazepines Negative (Negative); Urine Cocaine Negative (Negative); Urine MDMA Negative (Negative); Urine Methadone Negative (Negative); Urine Methamphetamines Negative (Negative); Urine Oxycodone Positive (Negative); Urine Phencyclidine Negative (Negative); Urine Tetrahydrocannabinol Negative (Negative); Urine Tricyclic Antidepressant Negative (Negative); Urine pH Normal (Normal)
[2020-04-28 18:27] LABS: Add Manual Diff / Slide Review NO; Basophils Absolute Auto 100 /uL (0-100); Basophils Percent Auto 1.3 % (0-2); Eosinophils Absolute Auto 100 /uL (0-450); Eosinophils Percent Auto 1.2 % (2-4); Hematocrit 50.2 % (41-53); Hemoglobin 17.3 g/dL (13.5-17.5); Lymphocytes Absolute Auto 1200 /uL (1100-4500); Lymphocytes Percent Auto 24.1 % (25-40); Mean Corpuscular HGB Conc 34.4 % (30-36); Mean Corpuscular Hemoglobin 28.8 PG (26-34); Mean Corpuscular Volume 83.8 fL (80-100); Monocytes Absolute Auto 500 /uL (0-900); Monocytes Percent Auto 9.8 % (3-14); Neutrophils Absolute Auto 3300 /uL (1500-7000); Neutrophils Percent Auto 63.6 % (50-75); Platelet Count 200 X10^3/uL (150-400); Red Blood Cell Count 5.99 X10^6/uL (4.5-5.9); Red Cell Distribution Width 19.2 % (11.6-14.8); White Blood Cell Count 5.2 X10^3/uL (4.5-11.0)
--- NOTE | 2020-04-28 18:28 | ED_ITS ---
HPI - Altered Mental Status General Chief Complaint: Altered Mental Status Stated Complaint: disoriented, Elevate liver function, sleepy Time Seen by Provider: 04/28/20 17:32 Source: patient Mode of arrival: Ambulatory Limitations: no limitations History of Present Illness HPI narrative: 54-year-old gentleman with a history of renal cell cancer with brain, lung and bony metastases. Currently on chemotherapy and post focused radiation therapy to the brain with concurrent chronic pain recently started on oxycodone extended release 10 mg b.i.d. 9 days ago. Most recent MRI of the brain March 23, 2020 shows smaller lesions throughout the brain with nice response with other metastatic lesions as well. He was significantly fatigued this morning did not go to work slept all day and when his checked on him this afternoon he was groggy, disoriented, dizzy she was concerned about stroke infection and had bleeding and brought him in for further evaluation. She does note that he seems to have improved wants in the emergency department. Notes that he has his chronic low back weakness that is unchanged and the neck/occiput pain post radiation therapy that is also unchanged. No fever, cough, abdominal pain, vomiting, diarrhea. He does note chills fairly regularly. Related Data Home Medications Medication Instructions Recorded Confirmed axitinib 5 mg tablet 5 mg PO Q12H 04/05/20 04/05/20 clindamycin phosphate 1 % lotion 1 applictn TOP BID 04/05/20 04/05/20 dexamethasone 1 mg tablet 1 mg PO BID 04/05/20 04/05/20 ibuprofen 200 mg tablet 200 mg PO BID PRN tab 04/05/20 04/05/20 Previous Rx's Medication Instructions Recorded oxycodone 5 mg PO Q8H PRN #20 tab 04/28/20 Allergies Allergy/AdvReac Type Severity Reaction Status Date / Time No Known Drug Allergies Allergy Verified 04/28/20 17:27 Review of Systems Review of Systems Narrative: Pertinent positive and negative findings as per HPI Remainder of review of systems is otherwise unremarkable for ENT: No sore throat, ear pain CV: Chest pain, palpitations, dyspnea on exertion Respiratory: Cough, wheeze, dyspnea GI: Nausea, vomiting, diarrhea, change in bowel habits, black or bloody stools : Dysuria, hematuria, flank pain Skin: Rashes, nonhealing lesions Neuro: Syncope, Patient History Medical History Renal cell carcinoma (Acute) Right medial knee pain (Acute) Smoker (Inactive) Surgical History (Updated 09/19/19 @ 19:48 by Taya Terry) Anesthesia (Resolved) History of ankle surgery (Resolved ~1978) Family History (Updated 09/19/19 @ 19:48 by Taya Terry) Father History of heart disease Social History Smoking Status: Former smoker Smoking Status: Former smoker alcohol intake frequency: 0-2 drinks per day Substance Use Type: does not use Exam Narrative Exam Narrative: General: Healthy appearing, in no acute distress. He is oriented to person time and place at this time however his supplements the history taken. Well-nourished well-developed HEENT: Moist mucous membranes, normal sclera with reactive pupils, Neck: No JVD, supple Respiratory: Lungs are clear to auscultation, no wheezing no rales no rhonchi. Full and symmetrical air movement Cardiac: Regular rate and rhythm no murmurs no bruits Abdomen: Soft nontender good bowel tones, no flank pain Skin: Warm and dry, no rashes Neurologic: Grossly neurologically intact with no obvious asymmetries or abnormalities, mild cognitive slowing of only Extremities: No trauma, well perfused Psych: Cooperative, appropriate insight and affect Initial Vital Signs Initial Vital Signs: Vital Signs Pulse Rate 83 04/28/20 17:27 Respiratory Rate 18 04/28/20 17:27 Blood Pressure 124/84 04/28/20 17:27 Pulse Oximetry 99 04/28/20 17:27 Course Orders Ordered: ED Orders 04/28/20 17:27 EKG-12 Lead Stat 04/28/20 17:33 CT head/brain wo con Stat 04/28/20 18:00 Ictotest Urine Stat Urine Drug Screen, Rapid Stat Urine Microscopic Stat 04/28/20 18:15 Ammonia (NH3) Stat Complete Blood Count AUTO DIFF Stat Comprehensive Metabolic Panel Stat Ethanol (ETOH) Stat Lactate (Lactic Acid) Stat Lipase Stat Partial Thromboplastin Time Stat Prothrombin Time INR Stat 04/28/20 18:41 COVID19 -ED/INPAT/OR/L&D Stat 04/28/20 18:43 XR chest 1V Stat 04/28/20 18:45 Blood Culture Stat Discontinued Medications Sodium Chloride (Normal Saline 0.9%) 1,000 mls @ 1,000 mls/hr IV BOLUS ONE Stop: 04/28/20 19:42 Last Infusion: 04/28/20 20:45 Dose: 1,000 mls/hr Documented by: Admin: 04/28/20 19:09 Dose: 1,000 mls/hr Documented by: ANASTASIYA Vital Signs Vital signs: Vital Signs - 8 hr 04/28/20 17:27 04/28/20 17:37 04/28/20 18:00 Pulse Rate 83 83 79 Respiratory Rate 18 Blood Pressure 124/84 115/83 Pulse Oximetry 99 98 98 04/28/20 18:30 04/28/20 19:00 04/28/20 19:30 Pulse Rate 80 76 75 Respiratory Rate 12 12 13 Blood Pressure 117/81 114/84 Pulse Oximetry 96 97 96 04/28/20 19:31 04/28/20 20:00 04/28/20 20:30 Pulse Rate 76 75 74 Respiratory Rate 14 16 16 Blood Pressure 125/83 119/88 134/85 Pulse Oximetry 96 98 97 MDM - Altered Mental Status Medical Records Attestation: I reviewed the patient's medical records. Lab Data Attestation: I reviewed the patient's lab results. Result diagrams: 04/28/20 18:15 04/28/20 18:15 Labs: Lab Results 04/28/20 04/28/20 04/28/20 Range/Units 18:00 18:00 18:15 WBC 5.2 (4.5-11.0) X10^3/uL RBC 5.99 H (4.5-5.9) X10^6/uL Hgb 17.3 (13.5-17.5) g/dL Hct 50.2 (41-53) % MCV 83.8 (80-100) fL MCH 28.8 (26-34) PG MCHC 34.4 (30-36) % RDW 19.2 H (11.6-14.8) % Plt Count 200 (150-400) X10^3/uL Neut % (Auto) 63.6 (50-75) % Lymph % (Auto) 24.1 L (25-40) % [place] % (Auto) 9.8 (3-14) % Eos % (Auto) 1.2 L (2-4) % Baso % (Auto) 1.3 (0-2) % Neut # (Auto) 3300 (8454-0381) /uL Lymph # (Auto) 1200 (3516-1223) /uL [place] # (Auto) 500 (0-900) /uL Eos # (Auto) 100 (0-450) /uL Baso # (Auto) 100 (0-100) /uL PT (10.1-12.7) SECONDS INR (0.9-1.3) APTT (26.4-36.2) SECONDS Sodium (137-145) mmol/L Potassium (3.4-5.1) mmol/L Chloride (98-107) mmol/L Carbon Dioxide (22-32) mmol/L BUN (9-20) mg/dL Creatinine (0.66-1.25) mg/dL Estimated GFR (>60) mL/min BUN/Creatinine Ratio (6-22) Glucose (70-100) mg/dL Lactate (0.7-2.1) mmol/L Calcium (8.4-10.2) mg/dL Total Bilirubin (0.2-1.3) mg/dL AST (17-59) IU/L ALT (<50) IU/L Alkaline Phosphatase (38-126) U/L Ammonia (9-30) umol/L Total Protein (6.3-8.2) g/dL Albumin (3.5-5.0) g/dL Globulin (1.7-4.1) g/dL Albumin/Globulin Ratio (1.0-2.8) Lipase (23-300) U/L Ur Bilirubin Confirm Negative (Negative) Urine RBC 1-5/hpf (0-5/HPF) Urine WBC 1-5/hpf (0-5/HPF) Ur Squamous Epith Cells 0-1 /hpf (0-5/HPF) Calcium Oxalate Crystal Few H Amorphous Sediment 2+ Urine Bacteria None seen (None) Hyaline Casts 1-5/lpf (None) Urine Mucus 2+ H (Negative) Ur Culture Indicated? Cult not indicated U Opiates 300ng/mL cut Negative (Negative) Ur Oxycodone Screen Positive H (Negative) Urine Methadone Screen Negative (Negative) Ur Barbiturates Screen Negative (Negative) U Tricyclic Antidepress Negative (Negative) Ur Phencyclidine Scrn Negative (Negative) Ur Amphetamines Screen Negative (Negative) U Methamphetamines Scrn Negative (Negative) Ur MDMA Scrn (Ecstasy) Negative (Negative) U Benzodiazepines Scrn Negative (Negative) Urine Cocaine Screen Negative (Negative) U Marijuana (THC) Screen Negative (Negative) Ethyl Alcohol ( - 10) mg/dL COVID-19 PCR (Negative) 04/28/20 04/28/20 04/28/20 Range/Units 18:15 18:15 18:15 WBC (4.5-11.0) X10^3/uL RBC (4.5-5.9) X10^6/uL Hgb (13.5-17.5) g/dL Hct (41-53) % MCV (80-100) fL MCH (26-34) PG MCHC (30-36) % RDW (11.6-14.8) % Plt Count (150-400) X10^3/uL Neut % (Auto) (50-75) % Lymph % (Auto) (25-40) % [place] % (Auto) (3-14) % Eos % (Auto) (2-4) % Baso % (Auto) (0-2) % Neut # (Auto) (5461-7358) /uL Lymph # (Auto) (2350-2680) /uL [place] # (Auto) (0-900) /uL Eos # (Auto) (0-450) /uL Baso # (Auto) (0-100) /uL PT 10.5 (10.1-12.7) SECONDS INR 0.9 (0.9-1.3) APTT 33 (26.4-36.2) SECONDS Sodium 127 L (137-145) mmol/L Potassium 4.2 (3.4-5.1) mmol/L Chloride 95 L (98-107) mmol/L Carbon Dioxide 23 (22-32) mmol/L BUN 20 (9-20) mg/dL Creatinine 0.80 (0.66-1.25) mg/dL Estimated GFR > 60.0 (>60) mL/min BUN/Creatinine Ratio 25.0 H (6-22) Glucose 102 H (70-100) mg/dL Lactate 1.3 (0.7-2.1) mmol/L Calcium 9.3 (8.4-10.2) mg/dL Total Bilirubin 1.1 (0.2-1.3) mg/dL AST 120 H (17-59) IU/L ALT 302 H (<50) IU/L Alkaline Phosphatase 141 H (38-126) U/L Ammonia (9-30) umol/L Total Protein 7.1 (6.3-8.2) g/dL Albumin 4.1 (3.5-5.0) g/dL Globulin 3.0 (1.7-4.1) g/dL Albumin/Globulin Ratio 1.4 (1.0-2.8) Lipase 71 (23-300) U/L Ur Bilirubin Confirm (Negative) Urine RBC (0-5/HPF) Urine WBC (0-5/HPF) Ur Squamous Epith Cells (0-5/HPF) Calcium Oxalate Crystal Amorphous Sediment Urine Bacteria (None) Hyaline Casts (None) Urine Mucus (Negative) Ur Culture Indicated? U Opiates 300ng/mL cut (Negative) Ur Oxycodone Screen (Negative) Urine Methadone Screen (Negative) Ur Barbiturates Screen (Negative) U Tricyclic Antidepress (Negative) Ur Phencyclidine Scrn (Negative) Ur Amphetamines Screen (Negative) U Methamphetamines Scrn (Negative) Ur MDMA Scrn (Ecstasy) (Negative) U Benzodiazepines Scrn (Negative) Urine Cocaine Screen (Negative) U Marijuana (THC) Screen (Negative) Ethyl Alcohol ( - 10) mg/dL COVID-19 PCR (Negative) 04/28/20 04/28/20 04/28/20 Range/Units 18:15 18:15 18:41 WBC (4.5-11.0) X10^3/uL RBC (4.5-5.9) X10^6/uL Hgb (13.5-17.5) g/dL Hct (41-53) % MCV (80-100) fL MCH (26-34) PG MCHC (30-36) % RDW (11.6-14.8) % Plt Count (150-400) X10^3/uL Neut % (Auto) (50-75) % Lymph % (Auto) (25-40) % [place] % (Auto) (3-14) % Eos % (Auto) (2-4) % Baso % (Auto) (0-2) % Neut # (Auto) (3030-6690) /uL Lymph # (Auto) (0790-7517) /uL [place] # (Auto) (0-900) /uL Eos # (Auto) (0-450) /uL Baso # (Auto) (0-100) /uL PT (10.1-12.7) SECONDS INR (0.9-1.3) APTT (26.4-36.2) SECONDS Sodium (137-145) mmol/L Potassium (3.4-5.1) mmol/L Chloride (98-107) mmol/L Carbon Dioxide (22-32) mmol/L BUN (9-20) mg/dL Creatinine (0.66-1.25) mg/dL Estimated GFR (>60) mL/min BUN/Creatinine Ratio (6-22) Glucose (70-100) mg/dL Lactate (0.7-2.1) mmol/L Calcium (8.4-10.2) mg/dL Total Bilirubin (0.2-1.3) mg/dL AST (17-59) IU/L ALT (<50) IU/L Alkaline Phosphatase (38-126) U/L Ammonia 12 (9-30) umol/L Total Protein (6.3-8.2) g/dL Albumin (3.5-5.0) g/dL Globulin (1.7-4.1) g/dL Albumin/Globulin Ratio (1.0-2.8) Lipase (23-300) U/L Ur Bilirubin Confirm (Negative) Urine RBC (0-5/HPF) Urine WBC (0-5/HPF) Ur Squamous Epith Cells (0-5/HPF) Calcium Oxalate Crystal Amorphous Sediment Urine Bacteria (None) Hyaline Casts (None) Urine Mucus (Negative) Ur Culture Indicated? U Opiates 300ng/mL cut (Negative) Ur Oxycodone Screen (Negative) Urine Methadone Screen (Negative) Ur Barbiturates Screen (Negative) U Tricyclic Antidepress (Negative) Ur Phencyclidine Scrn (Negative) Ur Amphetamines Screen (Negative) U Methamphetamines Scrn (Negative) Ur MDMA Scrn (Ecstasy) (Negative) U Benzodiazepines Scrn (Negative) Urine Cocaine Screen (Negative) U Marijuana (THC) Screen (Negative) Ethyl Alcohol < 10 ( - 10) mg/dL COVID-19 PCR Negative (Negative) Urine Dip Bedside Urine Glucose Negative Bedside Urine Bilirubin ++ 2 Bedside Urine Ketone +/- 5 Urine Specific [place] 1.030 Bedside Urine Occult Blood +/- Bedside Urine pH 5.5 Bedside Urine Protein + 30 Bedside Urine Urobilinogen 1+ 2mg Bedside Urine Nitrite - Negative Bedside Urine Leukocytes - Negative Esterase Imaging Data CT scan - head: Radiologist's Impression: FINDINGS: Image quality: Excellent. CSF spaces: Basal cisterns are patent. No extra-axial fluid collections. The ventricles are symmetric in size and shape. Brain: No intracranial bleeds. Focal edema is present within the right frontal white matter. This is markedly decreased in extent when compared with the prior CT dated December 27, 2019. Focal edema is also noted within the inferior left frontal lobe. This region is also markedly decreased in extent when compared with the prior CT. Underlying mass lesions are not appreciated on the current study but were visualized on the prior CT. No midline shift. No intraventricular hemorrhage. Skull and face: Calvarium and visualized facial bones appear intact, without suspicious lesions. Sinuses: Visualized sinuses and mastoids are clear. IMPRESSION: 1. Markedly decreased cerebral edema when compared with the prior CT dated December 27, 2019 consistent with the patient's given history of current treatment for brain metastases. No findings to suggest acute intracranial hemorrhage. If further characterization is warranted, MRI of the brain with and without contrast could be used. Dictated by: Maria Eugenia Virgen M.D. on 04/28/2020 at 17:50 Chest x-ray: Radiologist's Impression: FINDINGS: Surgical changes and devices: None. Lungs and pleura: Lungs are clear. No pleural effusions or pneumothorax. Mediastinum: Mediastinal contours appear normal. Heart size is normal. Bones and chest wall: No suspicious bony lesions. Overlying soft tissues appear unremarkable. IMPRESSION: No acute cardiopulmonary findings. Dictated by: Maria Eugenia Virgen M.D. on 04/28/2020 at 19:42 MDM Narrative Medical decision making narrative: 54-year-old gentleman with renal cell carcinoma, metastatic on treatment and seemingly responding nicely. Cognitive slowing and excessive fatigue noted today. Brain CT seems to be improved. Without fever, white count, tachycardia or elevated lactic acid in the localizing symptoms I am not suspicious of infection or sepsis at this time. His chest x-ray is similarly normal and [place] id study is negative today AST ALT and alkaline phosphatase are all slightly elevated which had been noted over the last few days without significant explanation identified. He is hyponatremic at 127 with potassium, calcium and ammonia levels normal. Follow-up is planned with his oncologist on Friday. He in discussion with patient and his , will give him a full L of normal saline, suggest that he not drink quite as much fluid water is he has been forcing himself to drink and decrease his extended-release OxyContin to daily instead of b.i.d.. Will give he and his copies of labs and imaging studies to share with their oncologist on Friday. Encouraged him to return if symptoms worsen. At time of discharge he seems to be back to his cognitive baseline . Safe for home discharge Discharge Plan Departure Patient Disposition: Home Clinical Impression: Acute hyponatremia Altered mental status Qualifiers: Altered mental status type: disorientation Qualified Code(s): R41.0 - Disorientation, unspecified Adverse drug effect Qualifiers: Encounter type: initial encounter Qualified Code(s): T50.905A - Adverse effect of unspecified drugs, medicaments and biological substances, initial encounter Discharge Date/Time: 04/28/20 20:49 Instructions: DI for Hyponatremia Activity Restrictions/Additional Instructions: Thank you for coming in today Your workup was very thorough and does not suggest worsening metastatic disease, stroke or infection/sepsis. Your liver enzyme tests (AST, ALT, alkaline phosphatase) remains slightly elevated and do need follow-up with your oncologist. Your sodium level was slightly low and you are given a L of normal saline in the emergency department. You probably do not need to force quite as much fluid as you have been trying to do. A good rule of thumb is light yellow urine. If it is darker you need more water and if it looks like water you need less. Regarding your pain medication, it may well be that the 10 mg extended release OxyContin twice a day is causing, or at least contributing to, this significant fatigue and confusion. I am going to suggest that you decrease that dose to 1 OxyContin daily and immediate release Oxycodone for breakthrough pain beyond that. I would recommend continuing the 200 mg of ibuprofen that you are taking morning and evening. A prescription for additional immediate relief oxycodone h as been sent to [place] [facility] for you. If you have additional worries concerns complaints or new findings please feel free to return to the emergency department I hope the rest of your treatment goes well Prescriptions: New oxycodone 5 mg tablet 5 mg PO Q8H PRN (Reason: pain) Qty: 20 RF: 0 No Action ibuprofen [Advil] 200 mg tablet 200 mg PO BID PRNRF: 0 dexamethasone 1 mg tablet 1 mg PO BID RF: 0 Inlyta 5 mg tablet 5 mg PO Q12H RF: 0 clindamycin phosphate 1 % lotion 1 applictn TOP BID RF: 0 Referrals: Noam Lawson MD [Primary Care Provider] -
[2020-04-28 18:32] LABS: INR 0.9 (0.9-1.3); Prothrombin Time 10.5 SECONDS (10.1-12.7)
[2020-04-28 18:35] LABS: PTT Partial Thromboplastin Tim 33 SECONDS (26.4-36.2)
[2020-04-28 18:36] LABS: Ammonia (NH3) 12 umol/L (9-30); Ethanol (ETOH) < 10 mg/dL
[2020-04-28 18:37] LABS: Alanine Aminotransferase 302 IU/L (<50); Albumin 4.1 g/dL (3.5-5.0); Albumin Globulin Ratio 1.4 (1.0-2.8); Alkaline Phosphatase 141 U/L (38-126); Aspartate Aminotransferase 120 IU/L (17-59); Bilirubin Total 1.1 mg/dL (0.2-1.3); Blood Urea Nitrogen 20 mg/dL (9-20); Calcium 9.3 mg/dL (8.4-10.2); Carbon Dioxide 23 mmol/L (22-32); Chloride 95 mmol/L (98-107); Estimated Glomerular Filt Rate > 60.0 mL/min (>60); Glucose 102 mg/dL (70-100); HEMOLYSIS 21 (0-50); Lipase 71 U/L (23-300); Potassium 4.2 mmol/L (3.4-5.1); Sodium 127 mmol/L (137-145); Total Protein 7.1 g/dL (6.3-8.2)
[2020-04-28 18:38] LABS: Lactate (Lactic Acid) 1.3 mmol/L (0.7-2.1)
--- NOTE | 2020-04-28 18:43 | DI.RAD.S_ITS ---
PROCEDURE: XR CHEST 1V INDICATIONS: confusion/infection concern TECHNIQUE: One view of the chest was acquired. COMPARISON: None. FINDINGS: Surgical changes and devices: None. Lungs and pleura: Lungs are clear. No pleural effusions or pneumothorax. Mediastinum: Mediastinal contours appear normal. Heart size is normal. Bones and chest wall: No suspicious bony lesions. Overlying soft tissues appear unremarkable. IMPRESSION: No acute cardiopulmonary findings. Dictated by: Maria Eugenia Virgen M.D. on 04/28/2020 at 19:42 Approved by: Maria Eugenia Virgen M.D. on 04/28/2020 at 19:42
[2020-04-28] MEDS: SODIUM CHLORIDE 0.9% 1,000 ML 1000 ML IV (19:09)
[2020-04-28 19:36] LABS: COVID19 -Nasal RAPID Negative (Negative)
[2020-04-28 20:03] LABS: Bacteria Urine None Seen
[2020-04-28 20:11] LABS: Amorphous Sediment Urine 2+; Calcium Oxalate Crystals Urine Few; Culture Indicated Urine Cult Not Indicated; Hyaline Casts Urine 1-5/LPF; Ictotest Urine Negative (Negative); Mucus Urine 2+ (Negative); RBC Urine 1-5/HPF (0-5/HPF); Squamous Epithelial Cell Urine 0-1 /HPF (0-5/HPF); WBC Urine 1-5/HPF (0-5/HPF)
== END 2020-04-28 20:49 | disposition home or self-care (01) ==
PROVIDERS: Emergency Medicine; Emergency Provider Emergency Medicine; PCP Student in an Organized Health Care Education/Training Program
DX: E87.1 Hypo-osmolality and hyponatremia (principal); R41.0 Disorientation, unspecified; T50.905A Adverse effect of unspecified drugs, medicaments and biological substances, initial encounter; C64.9 Malignant neoplasm of unspecified kidney, except renal pelvis
CPT/HCPCS: 36415; 70450; 71045; 80053; 80305; 80320; 81003; 81015; 82140; 83605; 83690; 85025; 85610; 85730; 87040; 87635; 93005; 96365; 96366; 99284